=== PATIENT | female | born 1955 | race African-American/Black ===

== ENCOUNTER 2023-10-05 08:54 | Day surgery (SDC) | payer OTHER ==
[2023-09-29 13:02] LABS: Hematocrit 41.9 % (36.0-45.0); Hemoglobin 13.9 g/dL (12.0-15.0); MCH 28.3 pg (27.0-35.0); MCHC 33.2 g/dL (32.0-36.0); MCV 85.5 fL (80-100); MPV 10.1 fL (7.6-11.3); Platelets 198 thou/uL (152-406); Red Cell Distribution Width 14.4 % (12.1-15.2)
[2023-09-29 13:25] LABS: Anion Gap 12.2 mEq/L (5.0-15.0); Potassium 4.2 mEq/L (3.5-5.1)
[2023-09-29 16:03] LABS: Blood Morphology Comment NOT SEEN (NOT SEEN); Differential Total Cells Count 100; Lymphocytes 33 % (15-42); Monocytes 6 % (0-10); Platelet Estimate ADEQ; Platelets Clumped FEW; Segmented Neutrophils 61 % (40-80)
[2023-10-05] MEDS ORDERED: ONDANSETRON 4 MG/2 ML VIAL ONE (09:34)
[2023-10-05] MEDS ORDERED: LIDOCAINE 1% MPF 5 ML VIAL ONE (09:34)
[2023-10-05] MEDS ORDERED: propofoL 200 MG/20 ML VIAL IV ONE (09:34)
[2023-10-05] MEDS ORDERED: MIDAZOLAM HCL 2 MG/2 ML INJ ONE (09:35)
[2023-10-05] MEDS ORDERED: FENTANYL CITR 100 MCG/2 ML ONE (09:35)
[2023-10-05] MEDS: Ringers Lactate 1,000 ML IV ONE (09:50)
[2023-10-05] MEDS ORDERED: LIDOCAINE 1% 20 ML MDV ONE (09:52)
[2023-10-05] MEDS ORDERED: LIDOCAINE HCL/EPINEPHRINE 20 ML MDV ONE (10:12)
[2023-10-05] MEDS: CEFAZOLIN SODIUM 2 GM/VIAL ONE (11:25)
[2023-10-05] MEDS ORDERED: KETOROLAC 30 MG/ML INJ ONE (11:44)
--- NOTE | 2023-10-05 13:28 | OP ---
Date of Procedure: 10/05/2023 Surgeon: Francesca Teresa MD Supercharger Mechanic: No assistant buyer. Preoperative Diagnosis: Postcoital bleeding and suspected endometrial polyp. Postoperative Diagnosis: Postcoital bleeding and suspected endometrial polyp. Procedures Performed: Diagnostic hysteroscopy and dilatation and curettage with MyoSure LITE. Complications: No complications. Drains: No drains. Specimens: Endometrial curettings with possible polyp. Anesthesia: General anesthesia with LMA. Estimated Blood Loss: Minimal. Condition: Patient's condition was stable. Indications: Patient is a 68-year-old with history of postcoital bleeding. Transvaginal ultrasound showed possible thickened endometrium, possibility of a polyp. She was consented for a hysteroscopy and endometrial sampling with direct visualization and removal of the polyp as needed and she was the n consented and brought to the OR. Description Of Procedure: The patient was taken back to OR, placed in supine fashion on the operatin g table. After the general anesthesia was given, she was placed in dorsal lithotomy position. Lower abdomen, vulva, vagina, and perineum and medial thighs were prepped and draped in a sterile fashion. A speculum was placed to expose the cervix. Anterior lip grasped with a single-tooth tenaculum and then the vaginal speculum was changed over to Lr. The cervix was opened up at the external os wit h the tip of a hemostat. Then, the cervix was dilated to 16-Malaysian with the help of multiple dilator s sequentially. The MyoSure scope was primed and then the machine was zeroed out. The scope was introduce d through the cervical canal directly into the uterine cavity. The cavity appeared to be empty. Sma ll polypoid appearing cystic lesions on the endometrium. The entire cavity was visualized. The cutt ing MyoSure tool was introduced through the scope, after removing the drainage channel, and through t his, endometrial curettings were performed in the areas of suspected polyp as well as the entire endo metrium on all white. The sampling was adequate. All the scope and other instruments were removed. Instruments and sponge counts were correct at the end of the case. The patient tolerated the proced ure well. She was recovered from anesthesia and taken to PACU in stable condition. EBL minimal. He r family member was notified of her findings. SK/MODL Voice ID: [id number] Report ID: [id number]
[2023-10-05 14:02] VITALS: BP 158/66; TEMP 97; O2SAT 98
--- NOTE | 2023-10-06 17:53 | EKG ---
Test Date: 2023-09-29 Test Time: 12:59:09 Taxicab Dispatcher: MARYCHUY MEASUREMENT RESULTS: Intervals: Rate: 68 FL: 120 QRSD: 90 QT: 392 QTc: 416 Brillion: P: 52 FL: 120 QRS: 49 T: 44 INTERPRETIVE STATEMENTS: Normal sinus rhythm Normal ECG No previous ECG available for comparison Electronically Signed On 10-06-23 17:33:04 CDT by Fran Howard
== END 2023-10-05 13:25 | disposition home or self-care (01) ==
LOC: OR 08:54
PROVIDERS: ATTEND Obstetrics & Gynecology
PROC: 0UDB8ZX Extraction of Endometrium, Via Natural or Artificial Opening Endoscopic, Diagnostic (ICD-10-PCS; principal; 2023-10-05 10:30)
DX: N84.0 Polyp of corpus uteri (principal); R93.89 Abnormal findings on diagnostic imaging of other specified body structures
CPT/HCPCS: 58558; 93005; 85025; 80048; 36415; 88305; J2704; J2001 ×2; J2250; J3010; J2405; J7120; 88304